=== PATIENT | female | born 1975 | race Caucasian/White ===

== ENCOUNTER → 2022-02-08 | Outpatient (CLI) | payer BC ==
[~2022-02-08] MED LIST: ATIVAN1 MG PO; CATAPRES 0.1MG0.1 MG PO; LOPRESSOR50 MG PO; PROTONIX 20 MG20 MG PO
== END ==
LOC: ECHO 11:43
DX: D50.9 Iron deficiency anemia, unspecified (principal); K90.9 Intestinal malabsorption, unspecified; C50.512 Malignant neoplasm of lower-outer quadrant of left female breast; I49.3 Ventricular premature depolarization; I07.1 Rheumatic tricuspid insufficiency; I37.1 Nonrheumatic pulmonary valve insufficiency
CPT/HCPCS: ECHO; 93306